=== PATIENT | male | born 1965 ===

== ENCOUNTER 2025-07-19 14:59 | Emergency (ER) | payer OTHER ==
[~2025-07-19] VITALS: Ht 180.3 cm; Wt 80.7 kg
[2025-07-19 15:02] VITALS: BP 134/100
[2025-07-19] MEDS ORDERED: Methyl Salicylate/Menth/Camph 57 GM TUBE TOP ONE (15:05)
[2025-07-19] MEDS ORDERED: Ketorolac Tromethamine 30mg Vial IM ONE (15:05)
[2025-07-19] MEDS ORDERED: OxyCODONE 5 mg/Acetamin 325 mg TABLET PO ONE (18:20)
[2025-07-19] MEDS ORDERED: RX Prepack 6 Tabs Oxycodone 5mg UD ONE (19:25)
[2025-07-19] MEDS ORDERED: RX Prepack 2 Tabs Ondansetron ODT 4MG UD ONE (19:25)
[2025-07-19] MEDS ORDERED: Percocet 5-3251 EACH PO (19:29)
[2025-07-19] MEDS ORDERED: LIDO700A20 TOP (19:29)
[2025-07-19] MEDS ORDERED: DIAZ2 PO (19:29)
== END 2025-07-19 19:38 | disposition home or self-care (01) ==
LOC: ER 14:59
DX: M54.42 Lumbago with sciatica, left side (principal); M54.16 Radiculopathy, lumbar region
CPT/HCPCS: 96372; 99283-25; A9270; J1885